=== PATIENT | female | born 1990 | race African-American/Black ===

== ENCOUNTER 2019-06-05 09:08 | Day surgery (SDC) | payer SELFPAY ==
[2019-06-01 12:12] VITALS: BMI 45.1
[2019-06-05] MEDS ORDERED: ROCURONIUM BROMIDE 50 MG/5 ML SYRINGE ONE ×2 (09:19→11:45)
[2019-06-05] MEDS ORDERED: KETOROLAC TROMETHAMINE 30 MG/1 ML VIAL ONE (09:19)
[2019-06-05] MEDS ORDERED: ONDANSETRON 4 MG/2 ML VIAL ONE ×2 (09:19→12:00)
[2019-06-05] MEDS ORDERED: DEXAMETHASONE SOD PHOSPHATE 4 MG/1 ML VIAL ONE ×2 (09:19→12:00)
[2019-06-05] MEDS ORDERED: MIDAZOLAM HCL 2 MG/2 ML SINGLE DOSE VIAL ONE (09:20)
[2019-06-05] MEDS ORDERED: PROPOFOL 20 ML ONE ×3 (09:20→13:31)
[2019-06-05] MEDS ORDERED: HEPARIN NA (PORCINE) 5,000 UNITS/ML 1ML VIAL ONE (09:35)
[2019-06-05] MEDS ORDERED: GLYCOPYRROLATE 0.2 MG/1 ML VIAL ONE ×2 (10:13→15:20)
[2019-06-05] MEDS ORDERED: NEOSTIGMINE METHYLSULFATE 0.5 MG/ML - 10 ML MDV ONE ×2 (10:13→15:20)
[2019-06-05] MEDS ORDERED: DESFLURANE GAS 240 ML BOTTLE IH ONE ×2 (10:15→11:54)
[2019-06-05] MEDS ORDERED: SODIUM CHLORIDE 0.9% P/F 10 ML VIAL IJ ONE (11:50)
[2019-06-05] MEDS ORDERED: ceFAZolin SODIUM 1 GM VIAL ONE (11:50)
[2019-06-05] MEDS ORDERED: SEVOFLURANE 250 ML BTL ONE (11:54)
[2019-06-05] MEDS ORDERED: METOPROLOL TARTRATE 5 MG/5 ML VIAL ONE (13:33)
[2019-06-05] MEDS ORDERED: LIDOCAINE HCL/PF 2% SDV 5ML VIAL ONE (13:36)
[2019-06-05] MEDS ORDERED: SUCCINYLCHOLINE CHLORIDE 200 MG/10 ML SYRINGE ONE (14:47)
[2019-06-05] MEDS ORDERED: ONDANSETRON 4 MG/2 ML VIAL IVPB PRN (16:04)
[2019-06-05] MEDS ORDERED: oxyCODONE HCL 5 MG TABLET PO PRN ×4 (16:04→16:05)
[2019-06-05] MEDS ORDERED: ONDANSETRON 4 MG/2 ML VIAL IVPUSH PRN (16:05)
[2019-06-05] MEDS ORDERED: PROMETHAZINE HCL 25 MG/1 ML VIAL IVPUSH PRN (16:05)
--- NOTE | 2019-06-05 16:07 | OP ---
Operative Note - Note: Operative Date: 06/05/19 Pre-Operative Diagnosis: bilateral macromastia Operation: bilateral breast reduction Post-Operative Diagnosis: Same as Pre-op Surgeon: Omar Singh Retail Mortgage Banker: Prakash Mills Anesthesia: General
[2019-06-05] MEDS ORDERED: LACTATED RINGERS SOLUTION 1,000 ML IV SCH (16:15)
[2019-06-05 19:36] VITALS: TEMP 98.1
[2019-06-05 19:47] VITALS: BP 121/82; PULSE 74
--- NOTE | 2019-06-06 10:41 | OP ---
DATE OF OPERATION: 06/05/2019 PROCEDURE: Bilateral reduction mammoplasty. PREOPERATIVE DIAGNOSIS: Bilateral symptomatic macromastia. POSTOPERATIVE DIAGNOSIS: Bilateral symptomatic macromastia. ATTENDING SURGEON: Omar Singh MD GRAIN BUYER: MABEL Perez The patient is marked in the holding area. She is asking to be as small as possible. She is willing to accept a small C or B. I have discussed with the patient that in order to achieve this I will attempt a lateral pedicle; however, may be required to convert to a free nipple graft if necessary. They understand this. Patient is given 5000 units of subcutaneous heparin preoperatively. She is given 2 g of Ancef preoperatively. LORA hose, sequential compression stockings are applied. She is brought to the operating room, placed in a supine position. Position is carefully checked by surgical and anesthesia teams. Ancef is given. Sequential compression stockings are verified working properly. The patient is secured in her position using all appropriate positional aids. The patient is prepped and draped in standard surgical fashion. A time-out is called. Patient, procedure, side, and sites are verified. DESCRIPTION OF PROCEDURE: The left side is addressed 1st. Nipple areolar is traced with a 45-mm cookie cutter. A lateral pedicle is marked with a 9 cm width. The right side is marked in a mirror image. The pedicle is deepithelialized under tourniquet with the exception of the nipple areolar complex. This is done bilaterally. Attention is then directed toward the left side where incisions are made along the John-type pattern and dissection carried down to the level of the chest wall both superiorly, medially, and inferiorly. The pedicle was then developed. The perforating blood vessels are maintained. The tissue between the pedicle and the John pattern is resected. On the patient's left is 1634 g. The hemostasis is meticulously achieved. The wound is copiously irrigated, tailor tacked, and rocky were placed. Attention is directed toward the contralateral right side. On the right side, a mirror image procedure is performed in identical mirror image fashion. The resection weight on the right side is 1560 g. With the skin tailor tacked, the patient is brought to a seated upright position where the entire operating team agrees that there is excellent symmetry of size and shape. There is good nipple position. The size is at most a B cup, by our assessment, and there is no need for conversion to free nipple graft. Patient is then returned to a supine position. Size 10 flat Adam drains are brought out through the lateral extents of the incision, secured with 2-0 silk drain sutures. The closure is then performed with a series of interrupted, buried, deep dermal 3-0 Monocryl suture in the vertical horizontal limbs followed by running subcuticular 3-0 Monocryl suture. The nipple areola is inset with a series of interrupted, buried, deep dermal 3-0 Monocryl sutures followed by a running subcuticular 3-0 Monocryl suture. All tissues are viable at the end of the procedure. Drains are placed to bulb suction. Patient tolerated the procedure well. Dressing are applied with Steri-Strips, 4 x 4's gauze, ABD gauze, and a surgical bra. Patient awoken from anesthesia having tolerated procedure well. Transferred to recovery without complication. Tanvi [id number]
--- NOTE | 2019-06-09 16:31 | PATH ---
Surgical Pathology Report Patient Name: AURORA PATEL Med. Rec. #: [id number] /Age/Gender: 1990 (Age: 29) / F Account: [id number] Location: [facility] Taken: 06/05/2019 Received: 06/05/2019 Reported: 06/09/2019 Physicians: Omar Singh Specimen(s) Received A: LEFT BREAST SKIN AND TISSUE B: RIGHT BREAST SKIN AND TISSUE Clinical History Reduction Final Diagnosis A. SKIN AND TISSUE, LEFT BREAST, REDUCTION: BENIGN BREAST TISSUE SHOWING FIBROCYSTIC CHANGES AND SMALL HEMANGIOMA. SKIN WITH NO PATHOLOGIC FINDINGS. B. SKIN, AND TISSUE, RIGHT BREAST, REDUCTION: BENIGN BREAST TISSUE SHOWING FIBROCYSTIC CHANGES. SKIN WITH NO PATHOLOGIC FINDINGS. Electronically Signed Reina Mckeon M.D. Gross Description A. Received in formalin labeled "left breast skin and tissue," is a 1650 g, 31.0 x 17.5 x 6.0 cm aggregate of multiple unoriented portions of fibroadipose tissue and brown, unremarkable skin. Sectioning reveals abundant dense, white fibrous tissue. Insurance Billing Clerk sections are submitted in 3 cassettes. B. Received in formalin labeled "right breast skin and tissue," is a 1581 g, 25.5 x 20.0 x 4.5 cm aggregate of multiple unoriented portions of fibroadipose tissue and brown, unremarkable skin. Sectioning reveals abundant dense, white fibrous tissue. Insurance Billing Clerk sections are submitted in 3 cassettes. DL/06/06/2019 saudi06/06/2019
== END 2019-06-05 19:40 | disposition home or self-care (01) ==
LOC: FASU 09:08
PROVIDERS: ATTEND Plastic Surgery
PROC: 0H0V0ZZ Alteration of Bilateral Breast, Open Approach (ICD-10-PCS; principal; 2019-06-05 12:04)
DX: N62 Hypertrophy of breast (principal)
CPT/HCPCS: 84703; 88305-TC; 94760; J1644

== ENCOUNTER 2023-09-29 22:25 | Emergency (ER) | payer OTHER ==
[2023-09-29 22:36] VITALS: BP 130/72; PULSE 91; RESP 17; TEMP 99.6; BMI 32.3
[2023-09-29] MEDS ORDERED: IBUPROFEN 400 MG TABLET (FP) PO ONE (22:43)
[2023-09-29] MEDS: IBUPROFEN 400 MG TABLET (FP) PO ONE (22:53)
== END 2023-09-29 23:24 | disposition home or self-care (01) ==
LOC: FER 22:25
DX: M79.602 Pain in left arm (principal); M25.512 Pain in left shoulder; V43.52XA Car driver injured in collision with other type car in traffic accident, initial encounter; Y92.410 Unspecified street and highway as the place of occurrence of the external cause
CPT/HCPCS: 99283-25